=== PATIENT | female | born 1980 | race Hispanic/Latino ===

== ENCOUNTER → 2018-09-22 | Day surgery (SDC) | payer MEDICARE ==
[~2018-09-22] MED LIST: ASPIR 8181 MG PO; BUPIVACAINE HCL 0.5% INJ 30 ML VIAL INJ ONE; CALCIUM PO; CARDIZEM CD180 MG PO; CEFAZOLIN SOD 1 GM/NS 50ML 100 ML IV ONE; DEXAMETHASONE SOD PHOS INJ 4 MG/ML VIAL ONE; DILTIAZEM HCL60 MG PO; FENTANYL CITRATE/PF 100MCG/2 ML INJ ONE; HYDROXYCHLOROQ200 MG PO; KETOROLAC TROMETHAMINE 30 MG/ML VIAL ONE; LIDOCAINE HCL 2% LOCAL INJ 5 ML SDV VIAL INJ ONE; MIDAZOLAM HCL 2 MG/2 ML VIAL ONE; MULTIVITAMINS1 EAC7 PO; MYCOPHENOLATE250 MG PO; NEOSTIGMINE 1 MG/ML 10ML VIAL ONE; ONDANSETRON HCL INJ 2MG/ML 2ML 2 MG/ML VIAL ONE; PREDNISONE5 MG PO; PROPOFOL IV EMULSION 10 MG/ML 20 ML VIAL ONE; SEVOFLURANE INHAL SOLN 250 ML PEN BTL ONE; Z DILTIAZEM PO; Z.0.PREDNISONE20 MG PO; Z.0.RAMIPRIL10 MG PO; [UNRECOGNIZED DRUG - CODE] PO; [UNRECOGNIZED DRUG - OTHER]; [UNRECOGNIZED DRUG - OTHER]
--- OUTSIDE RECORDS SUMMARY | 2018-09-22 05:37 | XMS REPORT ---
Author Author Kleber Brown eClinicalWorks Address Unknown Phone Unavailable Care Team Providers Care Pediatric Radiologist Name Role Phone Kleber Brown CP Unavailable Allergies, Adverse Reactions, Alerts Substance Reaction Event Type N.K.D.A. Info Not Available Non Drug Allergy Encounters Encounter Location Date RX Duplicate Kleber Brown MD May 04, 2014 2mth f/u Kleber Brown MD May 16, 2014 REFILLS Kleber Brown MD Aug 22, 2014 prednisone question Kleber Brown MD Aug 25, 2014 4 wk f/u Kleber Brown MD November 01, 2013 6 wk fu Kleber Brown MD December 15, 2013 REFILLS Kleber Brown MD May 02, 2014 3 M FU Kleber Brown MD December 08, 2014 Costochondritis Kleber Brown MD September 27, 2014 3 M FU Kleber Brown MD Sep 12, 2014 3 M AMY Brown MD Jun 07, 2015 3 M AMY Brown MD Sep 07, 2015 3 M AMY Brown MD Mar 10, 2015 add on Kleber Brown MD May 24, 2015 Unknown Kleber Brown MD Mar 17, 2015 Research Kleber Brown MD Mar 20, 2015 Problems Problem Type Condition ICD-9 Code Onset Dates Condition Status Problem Other care home (current) drug therapy Z79.899 Active Problem Headache R51 Active Problem Lupus M32.9 Active Assessment 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.899 Active Problem Lupus 710.0 Active Assessment Lupus M32.9 Active Medications Medication Code System Code Instructions Start Date End Date Status Dosage Diltiazem HCl [facility] [address]-93 120 MG Orally Once a day Active 1 tablet Aspir-81 [facility] [address]-39 81 MG Orally Once a day Active 1 tablet Hydroxychloroquine Sulfate [facility] 90705731322 200 Active TAKE 1 TABLET BY MOUTH EVERY DAY WITH FOOD OR MILK Calcium [facility] 71451-16817 600 MG Orally daily Active 1 tablet with meals Biotin [facility] 99441-67262 5000 MCG Orally twice a day Active 1 capsule Cipro [facility] [address]-04 500 MG Orally Twice a day Active 1 tablet Mycophenolate Mofetil [facility] [address]-96 500mg Orally bid Active 1 tablets PredniSONE [facility] 20593129849 5 MG Active TAKE 1 TABLET BY MOUTH EVERY DAY vitamin D Unknown 0 5000 po once a day Active 1 capsule Ramipril [facility] [address]-42 10 MG Orally Once a day Active 2 capsules Social History Social History Element Qualifiers Date Reported Tobacco Use: . Are you a:: never smoker Sep 07, 2015 Marital Status: . Sep 07, 2015 Caffeine: no. Sep 07, 2015 Exercise: yes. cardio and light weights Sep 07, 2015 Alcohol: no. 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 [place](-> OR=60 mL/min/1.73m2) 75 ALKALINE PHOSPHATASE(-33-115 U/L) 46 eGFR (-> OR=60 mL/min/1.73m2) 87 BILIRUBIN, TOTAL(-0.2-1.2 mg/dL) 0.3 BUN/CREATININE RATIO(-6-22 (calc)) NOT APPLICABLE ALBUMIN/GLOBULIN RATIO(-1.0-2.5 (calc)) 1.4 SODIUM(-135-146 mmol/L) 138 GLOBULIN(-1.9-3.7 g/dL (calc)) 2.9 POTASSIUM(-3.5-5.3 mmol/L) 3.9 GLUCOSE(-65-99 mg/dL) 66 CHLORIDE(-98-110 mmol/L) 104 ALBUMIN(-3.6-5.1 g/dL) 4.1 UREA NITROGEN (BUN)(-7-25 mg/dL) 13 PROTEIN, TOTAL(-6.1-8.1 g/dL) 7.0 SED RATE BY MODIFIED WESTERGREN SED RATE BY MODIFIED WESTERGREN(-< OR=20 mm/h) 9 C-REACTIVE PROTEIN C-REACTIVE PROTEIN(-<0.80 mg/dL) <0.10 CBC (INCLUDES DIFF/PLT) MCHC(-32.0-36.0 g/dL) 32.7 MCH(-27.0-33.0 pg) 32.1 PLATELET COUNT(-140-400 Thousand/uL) 260 RDW(-11.0-15.0 %) 12.8 BASOPHILS(- %) 0.4 ABSOLUTE NEUTROPHILS(-9726-3458 cells/uL) 1679 ABSOLUTE LYMPHOCYTES(-850-3900 cells/uL) 2057 MPV(-7.5-11.5 fL) 8.8 ABSOLUTE BASOPHILS(-0-200 cells/uL) 18 HEMATOCRIT(-35.0-45.0 %) 43.0 NEUTROPHILS(- %) 37.3 MCV(-80.0-100.0 fL) 98.3 RED BLOOD CELL COUNT(-3.80-5.10 Million/uL) 4.37 ABSOLUTE MONOCYTES(-200-950 cells/uL) 689 ABSOLUTE EOSINOPHILS(-15-500 cells/uL) 59 HEMOGLOBIN(-11.7-15.5 g/dL) 14.1 EOSINOPHILS(- %) 1.3 WHITE BLOOD CELL COUNT(-3.8-10.8 Thousand/uL) 4.5 LYMPHOCYTES(- %) 45.7 MONOCYTES(- %) 15.3 Summary Purpose eClinicalWorks Submission
--- OUTSIDE RECORDS SUMMARY | 2018-09-22 05:37 | XMS REPORT ---
Author Author Ryan Menendez [facility] eClinicalWorks Address Unknown Phone Unavailable Care Team Providers Care Sap Hana Developer Name Role Phone Ryan Menendez Unavailable Allergies, Adverse Reactions, Alerts Substance Reaction Event Type N.K.D.A. Info Not Available Non Drug Allergy Problems Problem Type Condition Code Onset Dates Condition Status Assessment Need for prophylactic vaccination and inoculation against influenza Z23 Active Problem Lupus M32.9 Active Problem Other residential (current) drug therapy Z79.899 Active Problem Inflammatory arthritis M19.90 Active Assessment Other residential (current) drug therapy Z79.899 Active Assessment Inflammatory arthritis M19.90 Active Problem Headache R51 Active Assessment Lupus M32.9 Active Medications Medication Code System Code Instructions Start Date End Date Status Dosage Ramipril [facility] [address]-19 10 MG Orally Once a day Active 2 capsules Mycophenolate Mofetil [facility] 08654133184 500 Active TAKE 1 TABLET BY MOUTH TWICE DAILY Diltiazem HCl [facility] [address]-86 180 MG Orally Once a day Active 1 tablet Kerydin [facility] [address]-57 5 % Externally Once a day Active 1 application to affected area Calcium + D [facility] [address]-23 600-200 MG-UNIT Orally Once a day Active 1 tablet with food [place] 3 [facility] 18521-64045 1000 MG Orally Once a day Active 1 capsule Aspir-81 [facility] [address]-56 81 MG Orally Once a day Active 1 tablet PredniSONE [facility] 45381708770 2.5mg every other day Active 1 tablet Terbinafine HCl [facility] [address]-15 250 MG Orally Once a day Active 1 tablet Biotin [facility] 73704-59213 5000 MCG Orally twice a day Active 1 capsule Plaquenil [facility] 20141770247 200 MG Active TAKE 1 TABLET BY MOUTH TWICE A DAY Vital Signs Date/Time: May 02, 2017 BMI 24.87 Index Weight 136 lbs Height 62 in Temperature 98.1 F Cardiac Monitoring Heart Rate 80 /min Blood Pressure Diastolic 62 mm Hg Blood Pressure Systolic 104 mm Hg Results No Known Results Immunizations Vaccine Administration Date Flu Vaccine May 02, 2017 Summary Purpose eClinicalWorks Submission
--- OUTSIDE RECORDS SUMMARY | 2018-09-22 05:37 | XMS REPORT ---
Author Author Ryan Menendez [facility] eClinicalWorks Address Unknown Phone Unavailable Care Team Providers Care Weigher Operator Name Role Phone GemmaRyan reese Unavailable Allergies, Adverse Reactions, Alerts Substance Reaction [...] Brown MD May 02, 2014 3 M AMY Brown MD December 08, 2014 Costochondritis Kleber Brown MD September 27, 2014 3 M AMY Brown MD Sep 12, 2014 3 M AMY Brown MD Jun 07, 2015 3 M AMY Brown MD Mar 10, 2015 add on Kleber Brown MD May 24, 2015 Unknown Kleber Brown MD Mar 17, 2015 Research Kleber Brown MD Mar 20, 2015 Problems Problem Type Condition ICD-9 Code Onset Dates Condition Status Assessment Encounter for immunization Z23 Active Problem Other long-term (current) drug therapy Z79.899 Active Problem Headache R51 Active Problem Lupus M32.9 Active Assessment 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.899 Active Assessment Headache R51 Active Problem Lupus 710.0 Active Assessment Lupus M32.9 Active Medications Medication Code System Code Instructions Start Date End Date Status Dosage Calcium [facility] 95051-61356 600 MG Orally daily Active 1 tablet with meals Cipro [facility] [address]-14 500 MG Orally Twice a day Active 1 tablet vitamin D Unknown 0 5000 po once a day Active 1 capsule PredniSONE [facility] [address]-63 5 MG Orally qd Active 1 tablet Ramipril [facility] [address]-30 10 MG Orally Once a day Active 2 capsules Aspir-81 [facility] [address]-16 81 MG Orally Once a day Active 1 tablet Mycophenolate Mofetil [facility] [address]-86 500mg Orally bid Active 1 tablets Plaquenil [facility] [address]-33 200 MG Orally Once a day Active 1 tablet with food or milk PredniSONE [facility] 53127224738 5 MG Active TAKE 1 TABLET BY MOUTH EVERY DAY Diltiazem HCl [facility] [address]-19 120 MG Orally Once a day Active 1 tablet Biotin [facility] 85503-05644 5000 MCG Orally twice a day Active 1 capsule Social History Social History Element Qualifiers Date Reported Tobacco Use: . Are you a:: never smoker Jun 07, 2015 Marital Status: . Jun 07, 2015 Caffeine: no. Jun 07, 2015 Exercise: yes. cardio and light weights Jun 07, 2015 Alcohol: no. 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 [place](-> OR=60 mL/min/1.73m2) 71 ALBUMIN(-3.6-5.1 g/dL) 4.3 SODIUM(-135-146 mmol/L) 137 PROTEIN, TOTAL(-6.1-8.1 g/dL) 7.7 BUN/CREATININE RATIO(-6-22 (calc)) NOT APPLICABLE CALCIUM(-8.6-10.2 mg/dL) 9.8 AST(-10-30 U/L) 22 GLUCOSE(-65-99 mg/dL) 74 ALKALINE PHOSPHATASE(-33-115 U/L) 57 BILIRUBIN, TOTAL(-0.2-1.2 mg/dL) 0.4 CREATININE(-0.50-1.10 mg/dL) 1.04 ALBUMIN/GLOBULIN RATIO(-1.0-2.5 (calc)) 1.3 UREA NITROGEN (BUN)(-7-25 mg/dL) 18 CARBON DIOXIDE(-19-30 mmol/L) 27 ALT(-6-29 U/L) 17 POTASSIUM(-3.5-5.3 mmol/L) 4.2 CHLORIDE(-98-110 mmol/L) 102 PROTEIN, TOTAL W/CREAT, RANDOM URINE CREATININE, RANDOM URINE(-20-320 mg/dL) 127 PROTEIN/CREATININE RATIO(-21-161 mg/g creat) 55 PROTEIN, TOTAL, RANDOM UR(-5-24 mg/dL) 7 C3, C4, COMPLEMENT COMPLEMENT COMPONENT C4C(-ADULTS: 16-47 mg/dL) 13 COMPLEMENT, TOTAL (CH50)(-31-60 U/mL) 52 COMPLEMENT COMPONENT C3C(- mg/dL) 106 C-REACTIVE PROTEIN C-REACTIVE PROTEIN(-<0.80 mg/dL) <0.10 DS DNA-Crithidia Ifa w/ Reflex DNA AB (DS) CRITHIDIA,IFA(-NEGATIVE ) POSITIVE SED RATE BY MODIFIED WESTERGREN SED RATE BY MODIFIED WESTERGREN(-< OR=20 mm/h) 5 URINALYSIS, COMPLETE OCCULT BLOOD(-NEGATIVE ) NEGATIVE KETONES(-NEGATIVE ) NEGATIVE BILIRUBIN(-NEGATIVE ) NEGATIVE GLUCOSE(-NEGATIVE ) NEGATIVE PH(-5.0-8.0 ) 5.5 SPECIFIC GRAVITY(-1.001-1.035 ) 1.010 APPEARANCE(-CLEAR ) CLEAR COLOR(-YELLOW ) YELLOW SQUAMOUS EPITHELIAL CELLS(-< OR=5 /HPF) NONE SEEN BACTERIA(-NONE SEEN /HPF) NONE SEEN HYALINE CAST(-NONE SEEN /LPF) NONE SEEN NITRITE(-NEGATIVE ) NEGATIVE LEUKOCYTE ESTERASE(-NEGATIVE ) NEGATIVE WBC(-< OR=5 /HPF) NONE SEEN RBC(-< OR=2 /HPF) NONE SEEN PROTEIN(-NEGATIVE ) NEGATIVE DNA AB (DS) CRITHIDIA TITER DNA AB (DS) CRITHIDIA TITER(-<1:10 titer) 1:160 CBC (INCLUDES DIFF/PLT) HEMOGLOBIN(-11.7-15.5 g/dL) 14.9 RED BLOOD CELL COUNT(-3.80-5.10 Million/uL) 4.61 MCV(-80.0-100.0 fL) 97.5 HEMATOCRIT(-35.0-45.0 %) 44.9 MCHC(-32.0-36.0 g/dL) 33.1 MCH(-27.0-33.0 pg) 32.3 PLATELET COUNT(-140-400 Thousand/uL) 285 RDW(-11.0-15.0 %) 13.0 MPV(-7.5-11.5 fL) 8.4 ABSOLUTE LYMPHOCYTES(-850-3900 cells/uL) 1700 ABSOLUTE NEUTROPHILS(-4502-1741 cells/uL) 2662 ABSOLUTE EOSINOPHILS(-15-500 cells/uL) 109 ABSOLUTE MONOCYTES(-200-950 cells/uL) 702 NEUTROPHILS(- %) 51.2 WHITE BLOOD CELL COUNT(-3.8-10.8 Thousand/uL) 5.2 BASOPHILS(- %) 0.5 ABSOLUTE BASOPHILS(-0-200 cells/uL) 26 EOSINOPHILS(- %) 2.1 LYMPHOCYTES(- %) 32.7 MONOCYTES(- %) 13.5 Immunizations Vaccine Administration Date Flu Vaccine Jun 07, 2015 Summary Purpose eClinicalWorks Submission
--- OUTSIDE RECORDS SUMMARY | 2018-09-22 05:37 | XMS REPORT ---
Author Author Ryan Menendez [facility] eClinicalWorks Address Unknown Phone Unavailable Care Team Providers Care Water Purifier Name Role Phone Ryan Menendez CP Unavailable Allergies, Adverse Reactions, Alerts Substance Reaction Event Type N.K.D.A. Info Not Available Non Drug Allergy Problems Problem Type Condition Code Onset Dates Condition Status Assessment Inflammatory arthritis M19.90 Active Problem Other intermediate manager (current) drug therapy Z79.899 Active Problem Headache R51 Active Problem Inflammatory arthritis M19.90 Active Assessment Lupus M32.9 Active Assessment Other intermediate manager (current) drug therapy Z79.899 Active Problem Lupus M32.9 Active Medications Medication Code System Code Instructions Start Date End Date Status Dosage Calcium + D [facility] 28160420851 600-200 MG-UNIT Orally Once a day Active 1 tablet with food Ramipril ND 53496927263 10 MG Orally Once a day Active 2 capsules Biotin ND 35825163095 5000 MCG Orally twice a day Active 1 capsule Diltiazem HCl [facility] 97037045772 180 MG Orally Once a day Active 1 tablet Mycophenolate Mofetil ND 14023372206 500 Active TAKE 1 TABLET BY MOUTH TWICE DAILY Plaquenil [facility] 90226778377 200 MG Active TAKE 1 TABLET BY MOUTH TWICE A DAY PredniSONE [facility] [address]-16 5 MG Orally every other day Active 1 tablet [place] 3 [facility] 02027922512 1000 MG Orally Once a day Active 1 capsule Aspir-81 [facility] 58753868659 81 MG Orally Once a day Active 1 tablet PredniSONE [facility] 47169321867 2.5 MG Orally Once a day Jul 22, 2018 Active 1 tablet Vital Signs Date/Time: Jun 23, 2018 Cardiac Monitoring Heart Rate 64 /min Blood Pressure Diastolic 70 mm Hg Blood Pressure Systolic 108 mm Hg Temperature 98.5 F Results No Known Results Summary Purpose eClinicalWorks Submission
--- OUTSIDE RECORDS SUMMARY | 2018-09-22 05:37 | XMS REPORT ---
Author Author Roseanne Allen [facility] eClinicalWorks Address Unknown Phone Unavailable Care Team Providers Care Cook Helper Vegetable Name Role Phone Roseanne Allen Unavailable Allergies, Adverse Reactions, Alerts Substance Reaction Event Type N.K.D.A. Info Not Available Non Drug Allergy Encounters Encounter Location Date RX Duplicate Kleber Brown MD May 04, 2014 2mth f/u Kleber Brown MD May 16, 2014 4 wk f/u Kleber Brown MD November 01, 2013 6 wk fu Kleber Brown MD December 15, 2013 REFILLS Kleber Brown MD May 02, 2014 Problems Problem Type Condition ICD-9 Code Onset Dates Condition Status Assessment Lupus 710.0 Active Social History Social History Element Qualifiers Date Reported Tobacco Use: . Are you a:: never smoker May 16, 2014 Caffeine: no. May 16, 2014 Exercise: yes. cardio and light weights May 16, 2014 Alcohol: no. May 16, 2014 Vital Signs Date/Time: May 16, 2014 Weight 132 lbs Height 61 in Temperature 98.5 F Cardiac Monitoring Heart Rate 76 /min Blood Pressure Diastolic 90 mm Hg Blood Pressure Systolic 160 mm Hg Results NURYS IFA SCREEN W/REFL TO TITER AND PATTERN, IFA NURYS TITER(- titer) 1:160 NURYS SCREEN, IFA(-NEGATIVE ) POSITIVE NURYS PATTERN(- ) HOMOGENEOUS DS DNA-Crithidia Ifa w/ Reflex DNA AB (DS) CRITHIDIA,IFA(-NEGATIVE ) POSITIVE DNA AB (DS) CRITHIDIA TITER(-<1:10 ) 1:160 C-REACTIVE PROTEIN C-REACTIVE PROTEIN(-<0.80 mg/dL) <0.10 COMPREHENSIVE METABOLIC PANEL W/EGFR SODIUM(-135-146 mmol/L) 138 BUN/CREATININE RATIO(-6-22 (calc)) NOT APPLICABLE CHLORIDE(-98-110 mmol/L) 105 POTASSIUM(-3.5-5.3 mmol/L) 4.2 CALCIUM(-8.6-10.2 mg/dL) 9.0 PROTEIN, TOTAL(-6.1-8.1 g/dL) 6.7 CARBON DIOXIDE(-19-30 mmol/L) 24 ALBUMIN/GLOBULIN RATIO(-1.0-2.5 (calc)) 1.6 eGFR NON-AFR. [place](-> OR=60 mL/min/1.73m2) 74 BILIRUBIN, TOTAL(-0.2-1.2 mg/dL) 0.3 eGFR (-> OR=60 mL/min/1.73m2) 86 UREA NITROGEN (BUN)(-7-25 mg/dL) 16 ALBUMIN(-3.6-5.1 g/dL) 4.1 GLOBULIN(-1.9-3.7 g/dL (calc)) 2.6 CREATININE(-0.50-1.10 mg/dL) 1.01 ALT(-6-29 U/L) 17 GLUCOSE(-65-99 mg/dL) 86 ALKALINE PHOSPHATASE(-33-115 U/L) 51 AST(-10-30 U/L) 17 Immunizations Vaccine Administration Date Flu Vaccine May 16, 2014 Summary Purpose eClinicalWorks Submission
--- OUTSIDE RECORDS SUMMARY | 2018-09-22 05:37 | XMS REPORT ---
Author Author Brody Cage Organization eClinicalWorks Address Unknown Phone Unavailable Care Team Providers Care Spiritual Advisor Name Role Phone Brody Cage CP Unavailable Allergies, Adverse Reactions, Alerts Substance Reaction Event Type N.K.D.A. Info Not Available Non Drug Allergy Encounters Encounter Location Date 4 wk f/u Kleber Brown MD November 01, 2013 6 wk fu Kleber Brown MD December 15, 2013 Problems Problem Type Condition ICD-9 Code Onset Dates Condition Status Assessment Lupus 710.0 Active Problem Lupus 710.0 Active Medications Medication Code System Code Instructions Start Date End Date Status Dosage Mycophenolate [facility]il [facility] [address]-95 500 MG Orally Twice a day Active 2 tablets Ramipril [facility] [address]-57 10 MG Orally Once a day Active 2 capsules Prednison Unknown 0 10 MG Once a day December 15, 2013 Inactive 1 tablet Prednisone Unknown 0 1mg Orally Once a day December 15, 2013 Mar 15, 2014 Active 4 tablets as directed Plaquenil [facility] [address]-83 200 MG Orally Once a day October 05, 2013 February 02, 2014 Active 2 tablets with food or milk Diltiazem HCl [facility] [address]-48 120 MG Orally Once a day Active 1 tablet PredniSONE [facility] [address]-40 5 MG Orally Once a day December 15, 2013 Apr 14, 2014 Active 1 tablet Social History Social History Element Qualifiers Date Reported Tobacco Use: . Are you a:: never smoker December 15, 2013 Caffeine: no. December 15, 2013 Exercise: yes. cardio and light weights December 15, 2013 Alcohol: no. December 15, 2013 Vital Signs Date/Time: December 15, 2013 Weight 134 lbs Height 61 in Temperature 96.9 F Cardiac Monitoring Heart Rate 80 /min Blood Pressure Diastolic 80 mm Hg Blood Pressure Systolic 120 mm Hg Summary Purpose eClinicalWorks Submission
--- OUTSIDE RECORDS SUMMARY | 2018-09-22 05:37 | XMS REPORT ---
Author Author Kleber Brown [facility] eClinicalWorks Address Unknown Phone Unavailable Care Team Providers Care Golf Club Manager Name Role Phone Kleber Brown Unavailable Encounters Encounter Location Date RX Duplicate Kleber Brown MD May 04, 2014 4 wk f/u Kleber Brown MD November 01, 2013 6 wk fu Kleber Brown MD December 15, 2013 REFILLS Kleber Brown MD May 02, 2014 Problems Problem Type Condition ICD-9 Code Onset Dates Condition Status Problem Lupus 710.0 Active Social History Social History Element Qualifiers Date Reported Tobacco Use: . Are you a:: never smoker December 15, 2013 Caffeine: no. December 15, 2013 Exercise: yes. cardio and light weights December 15, 2013 Alcohol: no. December 15, 2013 Summary Purpose eClinicalWorks Submission
--- OUTSIDE RECORDS SUMMARY | 2018-09-22 05:37 | XMS REPORT ---
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
--- OUTSIDE RECORDS SUMMARY | 2018-09-22 05:37 | XMS REPORT ---
Author Author Ryan Menendez [facility] eClinicalWorks Address Unknown Phone Unavailable Care Team Providers Care International Trade Compliance Manager Name Role Phone Ryan Menendez Unavailable Encounters Encounter Location Date RX Duplicate [...] 12, 2014 3 M AMY Brown MD December 06, 2015 plaquenil rx Kleber Brown MD December 28, 2015 3 M AMY Brown MD Jun 07, 2015 3 M AMY Brown MD Sep 07, 2015 3 M AMY Brown MD Mar 10, 2015 add on Kleber Brown MD May 24, 2015 Unknown Kleber Brown MD Mar 17, 2015 Research Kleber Brown MD Mar 20, 2015 Problems Problem Type Condition ICD-9 Code Onset Dates Condition Status Problem Other termite control servicer (current) drug therapy Z79.899 Active Problem Headache R51 Active Problem Lupus M32.9 Active Problem Lupus 710.0 Active Medications Medication Code System Code Instructions Start Date End Date Status Dosage Hydro[facility]ychloroqu[facility] [address]-00 200 MG Orally Twice a day December 28, 2015 Active 1 tablet Social History Social History Element Qualifiers Date Reported Tobacco Use: . Are you a:: never smoker December 06, 2015 Marital Status: . December 06, 2015 Caffeine: no. December 06, 2015 Exercise: yes. cardio and light weights December 06, 2015 Alcohol: no. 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
--- OUTSIDE RECORDS SUMMARY | 2018-09-22 05:37 | XMS REPORT ---
Author Author Kleber Brown eClinicalWorks Address Unknown Phone Unavailable Care Team Providers Care Film Composer Name Role Phone Kleber Brown CP Unavailable Encounters Encounter Location Date 4 wk f/u Kleber Brown MD November 01, 2013 6 wk fu Kleber Brown MD December 15, 2013 REFILLS Kleber Brown MD May 02, 2014 Problems Problem Type Condition ICD-9 Code Onset Dates Condition Status Problem Lupus 710.0 Active Medications Medication Code System Code Instructions Start Date End Date Status Dosage PrednisoLONE [facility] [address]-05 5 MG Orally Once a day May 02, 2014 Jun 01, 2014 Active 1 tablet Social History Social History Element Qualifiers Date Reported Tobacco Use: . Are you a:: never smoker December 15, 2013 Caffeine: no. December 15, 2013 Exercise: yes. cardio and light weights December 15, 2013 Alcohol: no. December 15, 2013 Summary Purpose eClinicalWorks Submission
--- OUTSIDE RECORDS SUMMARY | 2018-09-22 05:37 | XMS REPORT ---
Author Author Ryan Menendez [facility] eClinicalWorks Address Unknown Phone Unavailable Care Team Providers Care Leather Etcher Name Role Phone Ryan Menendez CP Unavailable Allergies, Adverse Reactions, Alerts Substance Reaction Event Type N.K.D.A. Info Not Available Non Drug Allergy Problems Problem Type Condition Code Onset Dates Condition Status Assessment Headache R51 Active Problem Other snf (current) drug therapy Z79.899 Active Problem Headache R51 Active Problem Inflammatory arthritis M19.90 Active Assessment Other snf (current) drug therapy Z79.899 Active Assessment Inflammatory arthritis M19.90 Active Problem Lupus M32.9 Active Assessment Lupus M32.9 Active Medications Medication Code System Code Instructions Start Date End Date Status Dosage Aspir-[address] [facility] 11754003830 81 MG Orally Once a day Active 1 tablet [place] 3 ND 96475494580 1000 MG Orally Once a day Active 1 capsule Plaquenil ND 31515874150 200 MG Active TAKE 1 TABLET BY MOUTH TWICE A DAY Diltiazem HCl ND 36312776593 180 MG Orally Once a day Active 1 tablet Calcium + D ND 12442087108 600-200 MG-UNIT Orally Once a day Active 1 tablet with food Ramipril ND 87045414707 10 MG Orally Once a day Active 2 capsules Mycophenolate Mofetil ND 57948541885 500 Active TAKE 1 TABLET BY MOUTH TWICE DAILY PredniSONE [facility] 56515689405 2.5 MG Orally Once a day Jul 22, 2018 Active 1 tablet Biotin ND 39273406229 5000 MCG Orally twice a day Active 1 capsule Vital Signs Date/Time: Mar 24, 2018 BMI 25.60 Index Weight 140 lbs Height 62 in Temperature 98.5 F Cardiac Monitoring Heart Rate 80 /min Blood Pressure Diastolic 70 mm Hg Blood Pressure Systolic 108 mm Hg Results No Known Results Summary Purpose eClinicalWorks Submission
--- OUTSIDE RECORDS SUMMARY | 2018-09-22 05:37 | XMS REPORT ---
Author Author Ryan Menendez [facility] eClinicalWorks Address Unknown Phone Unavailable Care Team Providers Care Behavioral Science Chair Name Role Phone Ryan Menendez Unavailable Allergies No Known Allergies Problems Problem Type Condition Code Onset Dates Condition Status Problem Lupus M32.9 Active Problem Other local company intermodal truck driver (current) drug therapy Z79.899 Active Problem Inflammatory arthritis M19.90 Active Problem Headache R51 Active Medications No Known Medications Results No Known Results Summary Purpose eClinicalWorks Submission
--- OUTSIDE RECORDS SUMMARY | 2018-09-22 05:37 | XMS REPORT ---
Author Author Ryan Menendez [facility] eClinicalWorks Address Unknown Phone Unavailable Care Team Providers Care Manufacturing Specialist Name Role Phone Ryan Menendez Unavailable Encounters [...] M AMY Brown MD December 06, 2015 3 M AMY Brown MD Jun 07, 2015 3 M AMY Brown MD Sep 07, 2015 3 M AMY Brown MD Mar 10, 2015 add on Kleber Brown MD May 24, 2015 Unknown Kleber Brown MD Mar 17, 2015 Research Kleber Brown MD Mar 20, 2015 Problems Problem Type Condition ICD-9 Code Onset Dates Condition Status Assessment Vitamin D deficiency E55.9 Active Problem Other [facility] (current[facility] drug therapy Z79.899 Active Problem Headache R51 Active Problem Lupus M32.9 Active Assessment Headache R51 Active Assessment Other [facility] (current[facility] drug therapy Z79.899 Active Problem Lupus 710.0 Active Assessment Lupus M32.9 Active Medications Medication Code System Code Instructions Start Date End Date Status Dosage Ramipril [facility] [address]-63 10 MG Orally Once a day Active 2 capsules Biotin [facility] 91405-19943 5000 MCG Orally twice a day Active 1 capsule PredniSONE [facility] 88547794137 5 MG every other day Active take 1 tablet Calcium + D [facility] [address]-52 600-200 MG-UNIT Orally Once a day Active 1 tablet with food Mycophenolate Mofetil [facility] [address]-93 500mg Orally once a day Active 1 tablets Hydroxychloroquine Sulfate [facility] 27446407292 200 Active TAKE 2 TABLET BY MOUTH EVERY DAY WITH FOOD OR MILK Aspir-81 [facility] [address]-95 81 MG Orally Once a day Active 1 tablet Diltiazem HCl [facility] [address]-07 120 MG Orally Once a day Active 1 tablet Social History Social History Element Qualifiers Date Reported Tobacco Use: . Are you a:: never smoker December 06, 2015 Marital Status: . December 06, 2015 Caffeine: no. December 06, 2015 Exercise: yes. cardio and light weights December 06, 2015 Alcohol: no. 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
--- OUTSIDE RECORDS SUMMARY | 2018-09-22 05:37 | XMS REPORT ---
Author Author yRan Menendez Organization eClinicalWorks Address Unknown Phone Unavailable Care Team Providers Care Lead Level Designer Name Role Phone Ryan Menendez CP Unavailable Allergies, Adverse Reactions, Alerts Substance Reaction Event Type N.K.D.A. Info Not Available Non Drug Allergy Problems Problem Type Condition Code Onset Dates Condition Status Problem Lupus M32.9 Active Problem Other terminologist (current) drug therapy Z79.899 Active Problem Inflammatory arthritis M19.90 Active Assessment Other terminologist (current) drug therapy Z79.899 Active Problem Headache R51 Active Assessment Lupus M32.9 Active Medications Medication Code System Code Instructions Start Date End Date Status Dosage Mycophenolate Mofetil [facility] 95688465679 500 Active TAKE 1 TABLET BY MOUTH TWICE DAILY Hydroxychloroquine Sulfate [facility] [address]-90 200 MG Orally Twice a day Active 1 tablet Plaquenil [facility] 35065970936 200 MG Active TAKE 1 TABLET BY MOUTH TWICE A DAY Calcium + D [facility] [address]-60 600-200 MG-UNIT Orally Once a day Active 1 tablet with food PredniSONE [facility] 88972985421 2.5mg every other day Active 1 tablet Diltiazem HCl [facility] [address]-37 180 MG Orally Once a day Active 1 tablet Ramipril [facility] [address]-72 10 MG Orally Once a day Active 2 capsules Biotin [facility] 41261-43957 5000 MCG Orally twice a day Active 1 capsule [place] 3 [facility] [address]44[address]-88452 1000 MG Orally Once a day Active 1 capsule Aspir-81 [facility] [address]-97 81 MG Orally Once a day Active 1 tablet Vital Signs Date/Time: January 30, 2017 BMI 24.10 Index Weight 131.8 lbs Height 62 in Temperature 96.3 F Cardiac Monitoring Heart Rate 68 /min Blood Pressure Diastolic 70 mm Hg Blood Pressure Systolic 110 mm Hg Results No Known Results Summary Purpose eClinicalWorks Submission
--- OUTSIDE RECORDS SUMMARY | 2018-09-22 05:37 | XMS REPORT ---
Author Author Ryan Menendez Organization eClinicalWorks Address Unknown Phone Unavailable Care Team Providers Care Tapper Shank Name Role Phone Ryan Menendez CP Unavailable Allergies, Adverse Reactions, Alerts Substance Reaction Event Type N.K.D.A. Info Not Available Non Drug Allergy Problems Problem Type Condition Code Onset Dates Condition Status Problem Other care home (current) drug therapy Z79.899 Active Problem Headache R51 Active Problem Inflammatory arthritis M19.90 Active Assessment Other care home (current) drug therapy Z79.899 Active Problem Lupus M32.9 Active Assessment Lupus M32.9 Active Medications Medication Code System Code Instructions Start Date End Date Status Dosage Aspir-81 [facility] 59702749651 81 MG Orally Once a day Active 1 tablet Ramipril ND 87302718271 10 MG Orally Once a day Active 2 capsules PredniSONE ND 91452049460 2.5mg every other day Active 1 tablet Mycophenolate Mofetil ND 87637910069 500 qd Active take 1 tablet Diltiazem HCl ND 02751437237 180 MG Orally Once a day Active 1 tablet Biotin ND 36124082065 5000 MCG Orally twice a day Active 1 capsule Calcium + D [facility] 96170627686 600-200 MG-UNIT Orally Once a day Active 1 tablet with food Plaquenil ND 12581357405 200 MG Active TAKE 1 TABLET BY MOUTH TWICE A DAY [place] 3 [place] 51889327258 1000 MG Orally Once a day Active 1 capsule Vital Signs Date/Time: November 20, 2017 BMI 25.24 Index Weight 138 lbs Height 62 in Temperature 97.4 F Cardiac Monitoring Heart Rate 74 /min Blood Pressure Diastolic 74 mm Hg Blood Pressure Systolic 118 mm Hg Results No Known Results Summary Purpose eClinicalWorks Submission
--- OUTSIDE RECORDS SUMMARY | 2018-09-22 05:37 | XMS REPORT ---
Author Author Brody Cage Organization eClinicalWorks Address Unknown Phone Unavailable Care Team Providers Care Diabetes Clinical Manager Name Role Phone Brody Cage Unavailable Encounters Encounter Location Date 4 wk f/u Kleber Brown MD November 01, 2013 Problems Problem Type Condition ICD-9 Code Onset Dates Condition Status Assessment Lupus 710.0 Active Assessment Unspecified vitamin D deficiency 268.9 Active Problem Lupus 710.0 Active Medications Medication Code System Code Instructions Start Date End Date Status Dosage Mycophenolate Mofetil [facility] [address]-34 500 MG Orally Twice a day Active 2 tablets Plaquenil [facility] [address]-34 200 MG Orally Once a day October 05, 2013 February 02, 2014 Active 1 tablet with food or milk Prednison Unknown 0 10 MG Once a day Active 1 tablet Ramipril [facility] [address]-78 10 MG Orally Once a day Active 2 capsules Levaquin [facility] [address]-80 500 MG Orally Once a day November 01, 2013 November 08, 2013 Active 1 tablet Heliocare [facility] [address]-67 240 MG Orally Once a day Active 1 capsule Diltiazem HCl [facility] [address]-79 120 MG Orally Once a day Active 1 tablet Social History Social History Element Qualifiers Date Reported Tobacco Use: . Are you a:: never smoker November 01, 2013 Caffeine: no. November 01, 2013 Exercise: yes. cardio and light weights November 01, 2013 Alcohol: no. November 01, 2013 Family history Qualifier Description Comment Date Reported Mother alive Comment not available November 01, 2013 Father Comment not available November 01, 2013 Vital Signs Date/Time: November 01, 2013 Weight 132 lbs Height 62 inches Temperature 97.3 F Cardiac Monitoring Heart Rate 68 Beats per Minute Blood Pressure Diastolic 80 mm Hg Blood Pressure Systolic 130 mm Hg Summary Purpose eClinicalWorks Submission
--- OUTSIDE RECORDS SUMMARY | 2018-09-22 05:37 | XMS REPORT ---
Author Author Kleber Brown Organization eClinicalWorks Address Unknown Phone Unavailable Care Team Providers Care Pin Attacher Name Role Phone Kleber Brown CP Unavailable Allergies No Known Allergies Problems Problem Type Condition Code Onset Dates Condition Status Problem Other exterminator (current) drug therapy Z79.899 Active Problem Headache R51 Active Problem Inflammatory arthritis M19.90 Active Problem Lupus M32.9 Active Medications No Known Medications Results No Known Results Summary Purpose eClinicalWorks Submission
--- OUTSIDE RECORDS SUMMARY | 2018-09-22 05:37 | XMS REPORT ---
Author Author Ryan Menendez Organization eClinicalWorks Address Unknown Phone Unavailable Care Team Providers Care Barrel Stave Inspector Name Role Phone Ryan Menendez CP Unavailable Allergies, Adverse Reactions, Alerts Substance Reaction Event Type N.K.D.A. Info Not Available Non Drug Allergy Problems Problem Type Condition Code Onset Dates Condition Status Problem Lupus M32.9 Active Problem Other termite inspector (current) drug therapy Z79.899 Active Problem Inflammatory arthritis M19.90 Active Assessment Other termite inspector (current) drug therapy Z79.899 Active Problem Headache R51 Active Assessment Lupus M32.9 Active Medications Medication Code System Code Instructions Start Date End Date Status Dosage Diltiazem HCl [facility] [address]-31 180 MG Orally Once a day Active 1 tablet PredniSONE [facility] 87580532444 2.5mg every other day Active 1 tablet Mycophenolate Mofetil [facility] 91652164859 500 Active TAKE 1 TABLET BY MOUTH TWICE DAILY Aspir-81 [facility] [address]-01 81 MG Orally Once a day Active 1 tablet Biotin [facility] 26794-97034 5000 MCG Orally twice a day Active 1 capsule Ramipril [facility] [address]-20 10 MG Orally Once a day Active 2 capsules Calcium + D [facility] [address]-99 600-200 MG-UNIT Orally Once a day Active 1 tablet with food Hydroxychloroquine Sulfate [facility] [address]-12 200 MG Orally Twice a day Active 1 tablet [place] 3 [facility] [address]33 1000 MG Orally Once a day Active 1 capsule Vital Signs Date/Time: October 15, 2016 BMI 23.91 Index Weight 135 lbs Height 63 in Temperature 96.9 F Cardiac Monitoring Heart Rate 64 /min Blood Pressure Diastolic 78 mm Hg Blood Pressure Systolic 110 mm Hg Results No Known Results Summary Purpose eClinicalWorks Submission
--- OUTSIDE RECORDS SUMMARY | 2018-09-22 05:37 | XMS REPORT ---
Author Author LenovandanaIzzy Organization eClinicalWorks Address Unknown Phone Unavailable Care Team Providers Care Sample Coordinator Name Role Phone Izzy Leach CP Unavailable Allergies, Adverse Reactions, Alerts Substance Reaction Event Type N.K.D.A. Info Not Available Non Drug Allergy Problems Problem Type Condition Code Onset Dates Condition Status Problem Other assisted (current) drug therapy Z79.899 Active Problem Headache R51 Active Problem Inflammatory arthritis M19.90 Active Assessment Other petroleum terminal plant operator (current) drug therapy Z79.899 Active Assessment Inflammatory arthritis M19.90 Active Problem Lupus M32.9 Active Assessment Lupus M32.9 Active Medications Medication Code System Code Instructions Start Date End Date Status Dosage Diltiazem HCl [facility] 89442387154 180 MG Orally Once a day Active 1 tablet Aspir-81 [facility] 06166751141 81 MG Orally Once a day Active 1 tablet Calcium + D [facility] 45412393921 600-200 MG-UNIT Orally Once a day Active 1 tablet with food PredniSONE ND 15320260372 2.5mg every other day Active 1 tablet Terbinafine HCl ND 54709253688 250 MG Orally Once a day Active 1 tablet Ramipril ND 95619624686 10 MG Orally Once a day Active 2 capsules Biotin [facility] 31516007546 5000 MCG Orally twice a day Active 1 capsule Plaquenil [facility] 01095215048 200 MG Active TAKE 1 TABLET BY MOUTH TWICE A DAY Mycophenolate Mofetil ND 81570381142 500 Active TAKE 1 TABLET BY MOUTH TWICE DAILY Kerydin [facility] 48409555246 5 % Externally Once a day Active 1 application to affected area [place] 3 ND 38585333520 1000 MG Orally Once a day Active 1 capsule Vital Signs Date/Time: Aug 04, 2017 BMI 24.87 Index Weight 136 lbs Height 62 in Temperature 97.6 F Cardiac Monitoring Heart Rate 70 /min Blood Pressure Diastolic 80 mm Hg Blood Pressure Systolic 110 mm Hg Results No Known Results Summary Purpose eClinicalWorks Submission
--- OUTSIDE RECORDS SUMMARY | 2018-09-22 05:37 | XMS REPORT ---
Author Author Kleber Brown eClinicalWorks Address Unknown Phone Unavailable Care Team Providers Care Tripper Name Role Phone Kleber Brown CP Unavailable Encounters Encounter Location Date RX Duplicate [...] Brown MD Sep 12, 2014 3 M FU Kleber Brown MD Mar 10, 2015 add on Kleber Brown MD May 24, 2015 Unknown Kleber Brown MD Mar 17, 2015 Research Kleber Brown MD Mar 20, 2015 Problems Problem Type Condition ICD-9 Code Onset Dates Condition Status Assessment Lupus 710.0 Active Problem Lupus 710.0 Active Social History Social History Element Qualifiers Date Reported Tobacco Use: . Are you a:: never smoker Mar 10, 2015 Marital Status: . Mar 10, 2015 Caffeine: no. Mar 10, 2015 Exercise: yes. cardio and light weights Mar 10, 2015 Alcohol: no. 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
--- OUTSIDE RECORDS SUMMARY | 2018-09-22 05:37 | XMS REPORT ---
Author Author Kleber Brown eClinicalWorks Address Unknown Phone Unavailable Care Team Providers Care Recycling Program Manager Name Role Phone Kleber Brown CP Unavailable [...] FU Kleber Brown MD Mar 10, 2015 Unknown Kleber Brown MD Mar 17, [...] Alcohol: no. 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
--- OUTSIDE RECORDS SUMMARY | 2018-09-22 05:37 | XMS REPORT | Continuity of Care Document ---
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 06/30/2018 Eron Vermaer Headache Active Problem 06/30/2018 Eron Stephanie Inflammatory arthritis Active Problem 06/30/2018 Eron Vermaer Lupus Active Problem 06/30/2018 Eron Brown Need for prophylactic vaccination and inoculation against influenza Active Diagnosis 05/09/2017 Eron Stephanie Lupus Active Problem 05/01/2016 Eron Brown Unspecified vitamin D deficiency Active Diagnosis 11/07/2013 Eron Brown Vitamin D deficiency Active Diagnosis 12/09/2015 Eron Brown Encounter for immunization Active Diagnosis 05/01/2016 Eron Brown Medications Medication Details Route Status Patient Instructions Ordering Provider Order Date Source PredniSONE 1 tablet Orally Active 2.5 MG Orally Once a day Gemma 07/22/2018 Eron Brown Hydroxychloroquine Sulfate 1 tablet Orally Active 200 MG Orally Twice a day Gemma 12/28/2015 Eron Brown PrednisoLONE 1 tablet Orally Active 5 MG Orally Once a day Lubec 05/02/2014 Eron Brown Prednison 1 tablet NA No Longer Active 10 MG Once a day Cage 12/15/2013 Eron Brown Prednisone 4 tablets as directed Orally Active 1mg Orally Once a day Cage 12/15/2013 Eron Brown PredniSONE 1 tablet Orally Active 5 MG Orally Once a day Cage 12/15/2013 Eron Brown Levaquin 1 tablet Orally Active 500 MG Orally Once a day Cage 11/01/2013 Eron Brown Plaquenil 2 tablets with food or milk Orally Active 200 MG Orally Once a day Cage 10/05/2013 Eron Brown Diltiazem HCl 1 tablet Orally Active 180 MG Orally Once a day Gemma Eron Brown Aspir-81 1 tablet Orally Active 81 MG Orally Once a day Gemma Eron Brown Calcium + D 1 tablet with food Orally Active 600-200 MG-UNIT Orally Once a day Gemma Eron Brown PredniSONE 1 tablet NA Active 2.5mg every other day Eron Vermaer Terbinafine HCl 1 tablet Orally Active 250 MG Orally Once a day Fakanupama Eron Brown Ramipril 2 capsules Orally Active 10 MG Orally Once a day Eron Brown Biotin 1 capsule Orally Active 5000 MCG Orally twice a day Eron Brown Plaquenil TAKE 1 TABLET BY MOUTH TWICE A DAY NA Active 200 MG [facility] Eron Brown Mycophenolate Mofetil TAKE 1 TABLET BY MOUTH TWICE DAILY NA Active 500 Eron Stephanie Kerydin 1 application to affected area Externally Active 5 % Externally Once a day [facility] Eron Brown [place] 3 1 capsule Orally Active 1000 MG Orally Once a day Eron Vermaer Plaquenil TAKE 1 TABLET BY MOUTH TWICE A DAY NA Active 200 MG Eron Brown PredniSONE 1 tablet Orally Active 5 MG Orally every other day Eron Brown Hydroxychloroquine Sulfate 1 tablet Orally Active 200 MG Orally Twice a day Eron Brown Calcium + D 1 tablet with food Orally Active 600-200 MG-UNIT Orally Once a day Eron Brown Diltiazem HCl 1 tablet Orally Active 180 MG Orally Once a day Eron Stephanie Ramipril 2 capsules Orally Active 10 MG Orally Once a day Eron Brown Biotin 1 capsule Orally Active 5000 MCG Orally twice a day Eron Vermaer [place] 3 1 capsule Orally Active 1000 MG Orally Once a day Eron Brown Aspir-81 1 tablet Orally Active 81 MG Orally Once a day Eron Brown Kerydin 1 application to affected area Externally Active 5 % Externally Once a day Eron Brown Terbinafine HCl 1 tablet Orally Active 250 MG Orally Once a day Eron Brown Mycophenolate Mofetil 1 tablets Orally Active 250mg Orally once a day Eron Brown Prednison 1 tablet NA Active 10 MG Once a day Fauzia Eron Brown Heliocare 1 capsule Orally Active 240 MG Orally Once a day Cagereilly Brown Hydroxychloroquine Sulfate TAKE 2 TABLET BY MOUTH EVERY DAY WITH FOOD OR MILK NA Active 200 Gemma Eron Brown Calcium 1 tablet with meals Orally Active 600 MG Orally daily Brown Eron Brown Cipro 1 tablet Orally Active 500 MG Orally Twice a day Stephanie Brown vitamin D 1 capsule po Active 5000 po once a day Brown Eron Brown PredniSONE 1 tablet Orally Active 5 MG Orally qd Gemma Eron Brown Plaquenil 1 tablet with food or milk Orally Active 200 MG Orally Once a day Gemma Eron Brown Super Greens as directed Orally Active Orally Gemma Eron Brown Acidophilus as directed Orally Active Orally Gemma Eron Brown PredniSONE 1 tablet Orally Active 2.5 MG Orally every other day Gemma Eron Brown Allergies, Adverse Reactions, Alerts Substance Category Reaction Severity Reaction type Status Date Reported Comments Source N.K.D.A. Adverse Reaction Info Not Available Adverse Reaction Active 06/23/2018 Eron Brown Immunizations Immunization Date Given Site Status Last Updated Comments Source Flu Vaccine 05/02/2017 completed Eron Brown Flu Vaccine 04/09/2016 completed Eron Brown Flu Vaccine 06/07/2015 completed Eron Brown Flu Vaccine 05/16/2014 completed Eron Brown Results Order Name Results Value Reference Range Date Interpretation Comments Source Vital Signs Vital Sign Value Date Comments Source Heart Rate 64 06/23/2018 Eron Brown Diastolic (mm Hg) 70 06/23/2018 Eron Brown Systolic (mm Hg) 108 06/23/2018 Eron Brown Temperature Oral (F) 98.5 F 06/23/2018 Eron Brown Weight 140 03/24/2018 Eron Brown Height 62 03/24/2018 Eron Brown Temperature Oral (F) 98.5 F 03/24/2018 Eron Brown Heart Rate 80 03/24/2018 Eron Brown Diastolic (mm Hg) 70 03/24/2018 Eron Brown Systolic (mm Hg) 108 03/24/2018 Eron Brown Weight 138 11/20/2017 Eron Brown Height 62 11/20/2017 Eron Brown Temperature Oral (F) 97.4 F 11/20/2017 Eron Brown Heart Rate 74 11/20/2017 Eron Brown Diastolic (mm Hg) 74 11/20/2017 Eron Brown Systolic (mm Hg) 118 11/20/2017 Eron Brown Weight 136 08/04/2017 Eron Brown Height 62 08/04/2017 Eron Brown Temperature Oral (F) 97.6 F 08/04/2017 Eron Brown Heart Rate 70 08/04/2017 Eron Brown Diastolic (mm Hg) 80 08/04/2017 Eron Brown Systolic (mm Hg) 110 08/04/2017 Eron Brown Weight 136 05/02/2017 Eron Brown Height 62 05/02/2017 Eron Brown Temperature Oral (F) 98.1 F 05/02/2017 Eron Brown Heart Rate 80 05/02/2017 Eron Brown Diastolic (mm Hg) 62 05/02/2017 Eron Brown Systolic (mm Hg) 104 05/02/2017 Eron Brown Weight 131.8 01/30/2017 Eron Brown Height 62 01/30/2017 Eron Brown Temperature Oral (F) 96.3 F 01/30/2017 Eron Brown Heart Rate 68 01/30/2017 Eron Brown Diastolic (mm Hg) 70 01/30/2017 Eron Brown Systolic (mm Hg) 110 01/30/2017 Eron Brown Weight 135 10/15/2016 Eron Brown Height 63 10/15/2016 Eron Brown Temperature Oral (F) 96.9 F 10/15/2016 Eron Brown Heart Rate 64 10/15/2016 Eron Brown Diastolic (mm Hg) 78 10/15/2016 Eron Brown Systolic (mm Hg) 110 10/15/2016 Eron Brown Weight 130 07/17/2016 Eron Brown Height 62.5 07/17/2016 Eron Brown Temperature Oral (F) 98.5 F 07/17/2016 Eron Brown Heart Rate 72 07/17/2016 Eron Brown Diastolic (mm Hg) 72 07/17/2016 Eron Brown Systolic (mm Hg) 110 07/17/2016 Eron Brown Weight 130 04/09/2016 Eron Brown Height 62 04/09/2016 Eron Brown Temperature Oral (F) 97.4 F 04/09/2016 Eron Brown Heart Rate 76 04/09/2016 Eron Brown Diastolic (mm Hg) 82 04/09/2016 Eron Brown Systolic (mm Hg) 122 04/09/2016 Eron Brown Weight 131 12/06/2015 Eron Brown Height 62 12/06/2015 Eron Brown Temperature Oral (F) 98.5 F 12/06/2015 Eron Brown Heart Rate 72 12/06/2015 Eron Brown Diastolic (mm Hg) 86 12/06/2015 Eron Brown Systolic (mm Hg) 124 12/06/2015 Eron Brown Weight 132 09/07/2015 Eron Brown Height 62 09/07/2015 Eron Brown Temperature Oral (F) 98.2 F 09/07/2015 Eron Brown Heart Rate 69 09/07/2015 Eron Brown Diastolic (mm Hg) 80 09/07/2015 Eron Brown Systolic (mm Hg) 120 09/07/2015 Eron Brown Weight 143 06/07/2015 Eron Brown Height 62 06/07/2015 Eron Brown Temperature Oral (F) 98.1 F 06/07/2015 Eron Brown Heart Rate 64 06/07/2015 Eron Brown Diastolic (mm Hg) 82 06/07/2015 Eron Brown Systolic (mm Hg) 122 06/07/2015 Eron Brown Weight 132 05/16/2014 Eron Brown Height 61 05/16/2014 Eron Brown Temperature Oral (F) 98.5 F 05/16/2014 Eron Brown Heart Rate 76 05/16/2014 Eron Brown Diastolic (mm Hg) 90 05/16/2014 Eron Brown Systolic (mm Hg) 160 05/16/2014 Eron Brown Weight 134 12/15/2013 Eron Brown Height 61 12/15/2013 Eron Brown Temperature Oral (F) 96.9 F 12/15/2013 Eron Brown Heart Rate 80 12/15/2013 Eron Brown Diastolic (mm Hg) 80 12/15/2013 Eron Brown Systolic (mm Hg) 120 12/15/2013 Eron Brown Weight 132 11/01/2013 Eron Brown Height 62 11/01/2013 Eron Brown Temperature Oral (F) 97.3 F 11/01/2013 Eron Brown Heart Rate 68 11/01/2013 Eron Brown Diastolic (mm Hg) 80 11/01/2013 Eron Brown Systolic (mm Hg) 130 11/01/2013 Eron Brown Encounters Location Location Details Encounter Type Encounter Number Reason For Visit Attending Provider ADM Date DC Date Status Source Kleber Brown MD 4 wk f/u [id number] 11/01/2013 11/01/2013 Eron Brown MD 4 wk f/u [id number] 11/01/2013 11/01/2013 Eron Brown MD 4 wk f/u [id number] 11/01/2013 11/01/2013 Eron Brown MD 4 wk f/u [id number] 11/01/2013 11/01/2013 Eron Brown MD 4 wk f/u [id number] 11/01/2013 11/01/2013 Eron Brown MD 4 wk f/u [id number] 11/01/2013 11/01/2013 Eron Brown MD 4 wk f/u [id number] 11/01/2013 11/01/2013 Eron Brown MD 4 wk f/u [id number] 11/01/2013 11/01/2013 Eron Brown MD 4 wk f/u [id number] 11/01/2013 11/01/2013 Eron Brown MD 4 wk f/u [id number] 11/01/2013 11/01/2013 Eron Brown MD 4 wk f/u [id number] 11/01/2013 11/01/2013 Eron Brown MD 4 wk f/u [id number] 11/01/2013 11/01/2013 Eron Brown MD 4 wk f/u [id number] 11/01/2013 11/01/2013 Eron Brown MD 6 wk fu [id number] 12/15/2013 12/15/2013 Eron Brown MD 6 wk fu [id number] 12/15/2013 12/15/2013 Eron Brown MD 6 wk fu [id number] 12/15/2013 12/15/2013 Eron Brown MD 6 wk fu [id number] 12/15/2013 12/15/2013 Eron Brown MD 6 wk fu [id number] 12/15/2013 12/15/2013 Eron Brown MD 6 wk fu [id number] 12/15/2013 12/15/2013 Eron Brown MD 6 wk fu [id number] 12/15/2013 12/15/2013 Eron Brown MD 6 wk fu [id number] 12/15/2013 12/15/2013 Eron Brown MD 6 wk fu [id number] 12/15/2013 12/15/2013 Eron Brown MD 6 wk fu [id number] 12/15/2013 12/15/2013 Eron Brown MD 6 wk fu [id number] 12/15/2013 12/15/2013 Eron Brown MD 6 wk fu [id number] 12/15/2013 12/15/2013 Eron Brown MD REFILLS [id number] 05/02/2014 05/02/2014 Eron Brown MD REFILLS [id number] 05/02/2014 05/02/2014 Eron Brown MD REFILLS [id number] 05/02/2014 05/02/2014 Eron Brown MD REFILLS [id number] 05/02/2014 05/02/2014 Eron Brown MD REFILLS [id number] 05/02/2014 05/02/2014 Eron Brown MD REFILLS [id number] 05/02/2014 05/02/2014 Eron Brown MD REFILLS [id number] 05/02/2014 05/02/2014 Eron Brown MD REFILLS [id number] 05/02/2014 05/02/2014 Eron Brown MD REFILLS [id number] 05/02/2014 05/02/2014 Eron Brown MD REFILLS [id number] 05/02/2014 05/02/2014 Eron Brown MD REFILLS [id number] 05/02/2014 05/02/2014 Eron Brown MD RX Duplicate [id number] 05/04/2014 05/04/2014 Eron Brown MD RX Duplicate [id number] 05/04/2014 05/04/2014 Eron Brown MD RX Duplicate [id number] 05/04/2014 05/04/2014 Eron Brown MD RX Duplicate [id number] 05/04/2014 05/04/2014 Eron Brown MD RX Duplicate [id number] 05/04/2014 05/04/2014 Eron Brown MD RX Duplicate [id number] 05/04/2014 05/04/2014 Eron Brown MD RX Duplicate [id number] 05/04/2014 05/04/2014 Eron Brown MD RX Duplicate [id number] 05/04/2014 05/04/2014 Eron Brown MD RX Duplicate [id number] 05/04/2014 05/04/2014 Eron Brown MD RX Duplicate [id number] 05/04/2014 05/04/2014 Eron Brown MD [facility] f/u [id number] 05/16/2014 05/16/2014 Eron Brown MD [facility] f/u [id number] 05/16/2014 05/16/2014 Eron Brown MD [facility] f/u [id number] 05/16/2014 05/16/2014 Eron Brown MD [facility] f/u [id number] 05/16/2014 05/16/2014 Eron Brown MD [facility] f/u [id number] 05/16/2014 05/16/2014 Eron Brown MD [facility] f/u [id number] 05/16/2014 05/16/2014 Eron Brown MD [facility] f/u [id number] 05/16/2014 05/16/2014 Eron Brown MD [facility] f/u [id number] 05/16/2014 05/16/2014 Eron Brown MD 2mth f/u [id number] 05/16/2014 05/16/2014 Eron Brown MD REFILLS [id number] 08/22/2014 08/22/2014 Eron Brown MD REFILLS [id number] 08/22/2014 08/22/2014 Eron Brown MD REFILLS [id number] 08/22/2014 08/22/2014 Eron Brown MD REFILLS [id number] 08/22/2014 08/22/2014 Eron Brown MD REFILLS [id number] 08/22/2014 08/22/2014 Eron Brown MD REFILLS [id number] 08/22/2014 08/22/2014 Eron Brown MD REFILLS [id number] 08/22/2014 08/22/2014 Eron Brown MD REFILLS [id number] 08/22/2014 08/22/2014 Eron Brown MD prednisone question [id number] 08/25/2014 08/25/2014 Eron Brown MD prednisone question [id number] 08/25/2014 08/25/2014 Eron Brown MD prednisone question [id number] 08/25/2014 08/25/2014 Eron Brown MD prednisone question [id number] 08/25/2014 08/25/2014 Eron Brown MD prednisone question [id number] 08/25/2014 08/25/2014 Eron Brown MD prednisone question [id number] 08/25/2014 08/25/2014 Eron Brown MD prednisone question [id number] 08/25/2014 08/25/2014 Eron Brown MD prednisone question [id number] 08/25/2014 08/25/2014 Eron Brown MD 3 M FU [id number] 09/12/2014 09/12/2014 Eron Brown MD 3 M FU [id number] 09/12/2014 09/12/2014 Eron Brown MD 3 M FU [id number] 09/12/2014 09/12/2014 Eron Brown MD 3 M FU [id number] 09/12/2014 09/12/2014 Eron Brown MD 3 M FU [id number] 09/12/2014 09/12/2014 Eron Brown MD 3 M FU [id number] 09/12/2014 09/12/2014 Eron Brown MD 3 M FU [id number] 09/12/2014 09/12/2014 Eron Brown MD 3 M FU [id number] 09/12/2014 09/12/2014 Eron Brown MD Costochondritis [id number] 09/27/2014 09/27/2014 Eron Brown MD Costochondritis [id number] 09/27/2014 09/27/2014 Eron Brown MD Costochondritis [id number] 09/27/2014 09/27/2014 Eron Brown MD Costochondritis [id number] 09/27/2014 09/27/2014 Eron Brown MD Costochondritis [id number] 09/27/2014 09/27/2014 Eron Brown MD Costochondritis [id number] 09/27/2014 09/27/2014 Eron Brown MD Costochondritis [id number] 09/27/2014 09/27/2014 [facility] [id number] 09/27/2014 09/27/2014 Eron Brown MD [facility] [id number] 12/08/2014 12/08/2014 Eron Brown MD [facility] [id number] 12/08/2014 12/08/2014 Eron Brown MD [facility] [id number] 12/08/2014 12/08/2014 Eron Brown MD [facility] [id number] 12/08/2014 12/08/2014 Eron Brown MD [facility] [id number] 12/08/2014 12/08/2014 Eron Brown MD [facility] [id number] 12/08/2014 12/08/2014 Eron Brown MD [facility] [id number] 12/08/2014 12/08/2014 Eron Brown MD [facility] [id number] 12/08/2014 12/08/2014 Eron Brown MD [facility] [id number] 03/10/2015 03/10/2015 Eron Brown MD 3 M FU [id number] 03/10/2015 03/10/2015 Eron Brown MD 3 M FU [id number] 03/10/2015 03/10/2015 Eron Brown MD 3 M FU [id number] 03/10/2015 03/10/2015 Eron Brown MD 3 M FU [id number] 03/10/2015 03/10/2015 Eron Brown MD 3 M [id number] 03/10/2015 03/10/2015 Eron Brown MD 3 M FU [id number] 03/10/2015 03/10/2015 Eron Brown MD 3 M FU [id number] 03/10/2015 03/10/2015 Eron Brown MD Unknown [id number] 03/17/2015 03/17/2015 Eron Brown MD Unknown [id number] 03/17/2015 03/17/2015 Eron Brown MD Unknown [id number] 03/17/2015 03/17/2015 Eron Brown MD Unknown [id number] 03/17/2015 03/17/2015 Eron Brown MD Unknown [id number] 03/17/2015 03/17/2015 Eron Brown MD Unknown [id number] 03/17/2015 03/17/2015 Eron Brown MD Unknown [id number] 03/17/2015 03/17/2015 Eron Brown MD Unknown [id number] 03/17/2015 03/17/2015 Eron Brown MD Research [id number] 03/20/2015 03/20/2015 Eron Brown MD Research [id number] 03/20/2015 03/20/2015 Eron Brown MD Research [id number] 03/20/2015 03/20/2015 Eron Brown MD Research [id number] 03/20/2015 03/20/2015 Eron Brown MD Research [id number] 03/20/2015 03/20/2015 Eron Brown MD Research [id number] 03/20/2015 03/20/2015 Eron Brown MD Research [id number] 03/20/2015 03/20/2015 Eron Brown MD Research [id number] 03/20/2015 03/20/2015 Eron Brown MD add on [id number] 05/24/2015 05/24/2015 Eron Brown MD add on [id number] 05/24/2015 05/24/2015 Eron Brown MD add on [id number] 05/24/2015 05/24/2015 Eron Brown MD add on [id number] 05/24/2015 05/24/2015 Eron Brown MD add on [id number] 05/24/2015 05/24/2015 Eron Brown MD add on [id number] 05/24/2015 05/24/2015 Eron Brown MD add on [id number] 05/24/2015 05/24/2015 Eron Brown MD 3 M FU [id number] 06/07/2015 06/07/2015 Eron Brown MD 3 M FU [id number] 06/07/2015 06/07/2015 Eron Brown MD 3 M FU [id number] 06/07/2015 06/07/2015 Eron Brown MD 3 M [id number] 06/07/2015 06/07/2015 Eron Brown MD 3 M FU [id number] 06/07/2015 06/07/2015 Eron Brown MD 3 M [id number] 06/07/2015 06/07/2015 Eron Brown MD 3 M [id number] 09/07/2015 09/07/2015 Eron Brown MD 3 M [id number] 09/07/2015 09/07/2015 Eron Brown MD 3 M [id number] 09/07/2015 09/07/2015 Eron Brown MD 3 M [id number] 09/07/2015 09/07/2015 Eron Brown MD 3 M [id number] 09/07/2015 09/07/2015 Eron Brown MD 3 M FU [id number] 12/06/2015 12/06/2015 Eron Brown MD 3 M [id number] 12/06/2015 12/06/2015 Eron Brown MD 3 M [id number] 12/06/2015 12/06/2015 Eron Brown MD 3 M [id number] 12/06/2015 12/06/2015 Eron Brown MD plaquenil rx [id number] 12/28/2015 12/28/2015 Eron Brown MD plaquenil rx [id number] 12/28/2015 12/28/2015 Eron Brown MD plaquenil rx [id number] 12/28/2015 12/28/2015 Eron Brown MD 3 M [id number] 04/09/2016 04/09/2016 Eron Brown MD 3 M [id number] 04/09/2016 04/09/2016 Eron Brown MD 3 M [id number] 07/17/2016 07/17/2016 Eron Brown Procedures Procedure Code Date Perfomer Comments Source
--- OUTSIDE RECORDS SUMMARY | 2018-09-22 05:38 | XMS REPORT ---
Author Author Ryan Menendez [facility] eClinicalWorks Address Unknown Phone Unavailable Care Team Providers Care Shrimp Cleaner Name Role Phone GemmaRyan Unavailable Allergies, Adverse Reactions, Alerts Substance Reaction [...] M AMY Brown MD December 08, 2014 3 M AMY Brown MD Jul 17, 2016 Costochondritis Kleber Brown MD September 27, 2014 3 M AMY Brown MD Sep 12, 2014 3 M AMY Brown MD December 06, 2015 plaquenil rx Kleber Brown MD December 28, 2015 3 Murali Brown MD Jun 07, 2015 3 Murali Brown MD Sep 07, 2015 3 M AMY Brown MD Mar 10, 2015 add on Kleber Brown MD May 24, 2015 Unknown Kleber Brown MD Mar 17, 2015 Research Kleber Brown MD Mar 20, 2015 3 M AMY Brown MD Apr 09, 2016 Problems Problem Type Condition ICD-9 Code Onset Dates Condition Status Problem Lupus M32.9 Active Problem Other terminal operator (current) drug therapy Z79.899 Active Problem Inflammatory arthritis M19.90 Active Assessment Other terminal operator (current) drug therapy Z79.899 Active Problem Headache R51 Active Assessment Lupus M32.9 Active Medications Medication Code System Code Instructions Start Date End Date Status Dosage Diltiazem HCl [facility] [address]-61 180 MG Orally Once a day Active 1 tablet Super Greens [facility] 95771-[address]23 Orally Active as directed Mycophenolate Mofetil [facility] 59609665863 500 Active TAKE 1 TABLET BY MOUTH TWICE DAILY Acidophilus [facility] [address]-10 Orally Active as directed Biotin [facility] 19484-16756 5000 MCG Orally twice a day Active 1 capsule Aspir-81 [facility] [address]-10 81 MG Orally Once a day Active 1 tablet Lathrop 3 [facility] 12098-47523 1000 MG Orally Once a day Active 1 capsule PredniSONE [facility] 18264098536 5 MG every ohter day Active 1 tablet Hydroxychloroquine Sulfate [facility] [address]-27 200 MG Orally Twice a day Active 1 tablet Calcium + D [facility] [address]-86 600-200 MG-UNIT Orally Once a day Active 1 tablet with food Ramipril [facility] [address]-79 10 MG Orally Once a day Active 2 capsules Social History Social History Element Qualifiers Date Reported Tobacco Use: . Are you a:: never smoker Jul 17, 2016 Marital Status: . Jul 17, 2016 Caffeine: no. Jul 17, 2016 Exercise: yes. cardio and light weights Jul 17, 2016 Alcohol: no. 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 Jul 17, 2016 Vital Signs Date/Time: Jul 17, 2016 Weight 130 lbs Height 62.5 in Temperature 98.5 F Cardiac Monitoring Heart Rate 72 /min Blood Pressure Diastolic 72 mm Hg Blood Pressure Systolic 110 mm Hg Results SED RATE BY MODIFIED WESTERGREN SED RATE BY MODIFIED WESTERGREN(-< OR=20 mm/h) 11 DS DNA-Crithidia Ifa w/ Reflex DNA AB (DS) CRITHIDIA,IFA(-NEGATIVE ) POSITIVE C3, C4, COMPLEMENT COMPLEMENT COMPONENT C3C(- mg/dL) 114 COMPLEMENT COMPONENT C4C(-ADULTS: 16-47 mg/dL) 13 COMPLEMENT, TOTAL (CH50)(-31-60 U/mL) 58 C-REACTIVE PROTEIN C-REACTIVE PROTEIN(-<0.80 mg/dL) 0.22 DNA AB (DS) CRITHIDIA TITER DNA AB (DS) CRITHIDIA TITER(-<1:10 titer) 1:160 Summary Purpose eClinicalWorks Submission
--- OUTSIDE RECORDS SUMMARY | 2018-09-22 05:38 | XMS REPORT ---
Author Author Ryan Menendez [facility] eClinicalWorks Address Unknown Phone Unavailable Care Team Providers Care Fuel Cell Binder Name Role Phone GemmaRyan reese Unavailable Allergies, [...] ICD-9 Code Onset Dates Condition Status Assessment Inflammatory arthritis M19.90 Active Assessment Encounter for immunization Z23 Active Problem Lupus M32.9 Active Problem Other rat exterminator (current) drug therapy Z79.899 Active Problem Inflammatory arthritis M19.90 Active Assessment Lupus M32.9 Active Assessment Other rat exterminator (current) drug therapy Z79.899 Active Problem Headache R51 Active Problem Lupus 710.0 Active Medications Medication Code System Code Instructions Start Date End Date Status Dosage PredniSONE [facility] 83390967211 5 MG every other day Active 1 tablet Aspir-81 [facility] [address]-98 81 MG Orally Once a day Active 1 tablet Mycophenolate Mofetil [facility] [address]-53 250mg Orally once a day Active 1 tablets Calcium + D [facility] [address]-09 600-200 MG-UNIT Orally Once a day Active 1 tablet with food Hydroxychloroquine Sulfate [facility] [address]-62 200 MG Orally Twice a day December 28, 2015 Active 1 tablet Diltiazem HCl [facility] [address]-12 180 MG Orally Once a day Active 1 tablet PredniSONE [facility] [address]-55 2.5 MG Orally every other day Active 1 tablet Biotin [facility] 38100-[address]202 5000 MCG Orally twice a day Active 1 capsule Ramipril [facility] [address]-72 10 MG Orally Once a day Active 2 capsules Social History Social History Element Qualifiers Date Reported Tobacco Use: . Are you a:: never smoker Apr 09, 2016 Marital Status: . Apr 09, 2016 Caffeine: no. Apr 09, 2016 Exercise: yes. cardio and light weights Apr 09, 2016 Alcohol: no. 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 [place](-> OR=60 mL/min/1.73m2) 78 ALKALINE PHOSPHATASE(-33-115 U/L) 51 eGFR (-> OR=60 mL/min/1.73m2) 90 BILIRUBIN, TOTAL(-0.2-1.2 mg/dL) 0.4 BUN/CREATININE RATIO(-6-22 (calc)) NOT APPLICABLE ALBUMIN/GLOBULIN RATIO(-1.0-2.5 (calc)) 1.4 SODIUM(-135-146 mmol/L) 139 GLOBULIN(-1.9-3.7 g/dL (calc)) 2.8 POTASSIUM(-3.5-5.3 mmol/L) 4.3 GLUCOSE(-65-99 mg/dL) 80 CHLORIDE(-98-110 mmol/L) 105 ALBUMIN(-3.6-5.1 g/dL) 3.8 UREA NITROGEN (BUN)(-7-25 mg/dL) 14 PROTEIN, TOTAL(-6.1-8.1 g/dL) 6.6 SED RATE BY MODIFIED WESTERGREN SED RATE BY MODIFIED WESTERGREN(-< OR=20 mm/h) 4 C-REACTIVE PROTEIN C-REACTIVE PROTEIN(-<0.80 mg/dL) 0.11 CBC (INCLUDES DIFF/PLT) MCHC(-32.0-36.0 g/dL) 33.3 MCH(-27.0-33.0 pg) 32.4 PLATELET COUNT(-140-400 Thousand/uL) 273 RDW(-11.0-15.0 %) 13.0 BASOPHILS(- %) 0.2 ABSOLUTE NEUTROPHILS(-8689-9947 cells/uL) 2957 ABSOLUTE LYMPHOCYTES(-850-3900 cells/uL) 1764 MPV(-7.5-11.5 fL) 8.4 ABSOLUTE BASOPHILS(-0-200 cells/uL) 11 HEMATOCRIT(-35.0-45.0 %) 43.9 NEUTROPHILS(- %) 52.8 MCV(-80.0-100.0 fL) 97.3 RED BLOOD CELL COUNT(-3.80-5.10 Million/uL) 4.51 ABSOLUTE MONOCYTES(-200-950 cells/uL) 728 ABSOLUTE EOSINOPHILS(-15-500 cells/uL) 140 HEMOGLOBIN(-11.7-15.5 g/dL) 14.6 EOSINOPHILS(- %) 2.5 WHITE BLOOD CELL COUNT(-3.8-10.8 Thousand/uL) 5.6 LYMPHOCYTES(- %) 31.5 MONOCYTES(- %) 13.0 C3, C4, COMPLEMENT COMPLEMENT, TOTAL (CH50)(-31-60 U/mL) 52 COMPLEMENT COMPONENT C4C(-ADULTS: 16-47 mg/dL) 11 COMPLEMENT COMPONENT C3C(- mg/dL) 88 DS DNA-Crithidia Ifa w/ Reflex DNA AB (DS) CRITHIDIA,IFA(-NEGATIVE ) NEGATIVE Immunizations Vaccine Administration Date Flu Vaccine Apr 09, 2016 Summary Purpose eClinicalWorks Submission
[2018-09-22 10:14] VITALS: BP 129/83
--- NOTE | 2018-09-22 17:02 | Operative Report ---
DATE OF PROCEDURE: 09/22/2018 SURGEON: Tara Casanova DPM CARROT BUNCHER: None. PREOPERATIVE DIAGNOSES: 1. Tailor's bunion, left foot. 2. Hammertoe, fourth, left. 3. Hammertoe, five, left. POSTOPERATIVE DIAGNOSES: 1. Tailor's bunion, left foot. 2. Hammertoe, fourth, left. 3. Hammertoe, five, left. PROCEDURE: 1. Fifth metatarsal osteotomy with internal fixation, left. 2. PIPJ arthrodesis, fourth. 3. Rotational arthroplasty, fifth, left. 4. Human Allograft in order to prevent adhesions, to promote healing. COMPLICATIONS: None. CONDITION: Stable. HEMOSTASIS: Pneumatic ankle tourniquet. ESTIMATED BLOOD LOSS: Less than 10 mL. MATERIALS: 1. EasyClip Xpress 10 x 10 mm staple, lot number [id number]. 2. Intramedullary arthrodesis implants Human Allograft lot #[id number]. 3. Allograft 2 x 2, lot number is [id number], expiration November 14, 2019. PROCEDURE IN DETAIL: Under mild sedation, the patient was brought to the operating room and placed on the operating table in a supine position. Following IV sedation, anesthesia was obtained with general anesthetic. At this point, the left foot scrubbed, prepped and draped in usual aseptic manner. It was then lowered to the table after the pneumatic ankle tourniquet was inflated to 250 mmHg. Fifth metatarsal osteotomy. Attention was then directed to the lateral aspect of the fifth, where a linear incision was made overlying the fifth MPJ down into the metatarsal. The incision was deepened via sharp and blunt dissection to the level of the capsule. Linear capsulotomy was then performed. At this point, the large exostosis at the lateral aspect of fifth metatarsal was then removed utilizing an oscillating saw. Fifth metatarsal osteotomy was performed [id number] in reverse chevron type of procedure. About 60 degrees, the head of the first metatarsal was then moved into the medial lateral position helping to close the intermetatarsal angle. A staple was used 10 mm in order to fixate the osteotomy. There was noted to be adequate compression clinically and with the use of intraoperative fluoroscopy. Attention was then directed to the fourth, where a linear incision was made at the proximal interphalangeal joint. The incision was deepened via sharp and blunt dissection down to the level of the tendon. The tendon was then tenotomized. The joint was then visualized. It was then prepared for arthrodesis. A was then used to fixate the arthrodesis. There was noted to be adequate compression clinically and with the use of intraoperative fluoroscopy. Standard derotational arthroplasty incision was then made at the fifth PIP joint. The incision was deepened down to the level of the extensor tendon. The extensor tendon was then tenotomized. Arthroplasty was then performed and noted to decrease the contracture at that joint. The joint was using the skin plasty. An allograft 2 x 2 was then inserted into the area after closure of the capsule. Before closure, copious amount of irrigation, then closure was performed with the 3-0 Vicryl, 4-0 Vicryl, and 4-0 nylon. The allograft was then used at the level of subcu and noted to prevent adhesions and to promote healing of the area. At this point, there was still noted contracture at the DIP joint at the fourth. Utilizing sharp dissection, the plantar flexor tendon was then tenotomized, the contracture was then released and the area was then closed with 4-0 nylon. All the areas were then closed closing the deepest layer with 3-0 Vicryl, 4-0 Vicryl and 4-0 nylon. Clean dressing was applied consisting of Adaptic, Coban, 4x4s, Kerlix and an Otis bandage. The tourniquet was deflated. There was noted to be a hyperemic response to all the digits. The patient tolerated the procedure and anesthesia well without complications and was transferred to recovery room with vital signs stable and vascular status intact to both feet. The patient will be weightbearing with the use of postop shoe and crutches. The patient will call the office if any questions, concerns, or any problems arise. CHAU Stafford/RANCHO /[id number] CRISSY
== END | disposition home or self-care (01) ==
LOC: OR 05:34
PROVIDERS: ATTEND Podiatrist Foot & Ankle Surgery
DX: M21.622 Bunionette of left foot (principal); M20.42 Other hammer toe(s) (acquired), left foot; M32.9 Systemic lupus erythematosus, unspecified; I10 Essential (primary) hypertension; R00.1 Bradycardia, unspecified; Z01.810 Encounter for preprocedural cardiovascular examination; Z79.82 Long term (current) use of aspirin; Z79.52 Long term (current) use of systemic steroids
CPT/HCPCS: 28110; 28285 ×2; 81025; 93005; J0690; J1100; J1885; J2001; J2250; J2405; J2704; J2710; 76000

== ENCOUNTER 2021-03-15 11:33 | Inpatient (IN) | payer MEDICARE ==
[~2021-03-15] VITALS: Ht 154.9 cm; Wt 70.3 kg
[~2021-03-15 11:33] MED LIST changes: -BUPIVACAINE HCL 0.5% INJ 30 ML VIAL INJ ONE; -CEFAZOLIN SOD 1 GM/NS 50ML 100 ML IV ONE; -DEXAMETHASONE SOD PHOS INJ 4 MG/ML VIAL ONE; -FENTANYL CITRATE/PF 100MCG/2 ML INJ ONE; -KETOROLAC TROMETHAMINE 30 MG/ML VIAL ONE; -LIDOCAINE HCL 2% LOCAL INJ 5 ML SDV VIAL INJ ONE; -MIDAZOLAM HCL 2 MG/2 ML VIAL ONE; -NEOSTIGMINE 1 MG/ML 10ML VIAL ONE; -ONDANSETRON HCL INJ 2MG/ML 2ML 2 MG/ML VIAL ONE; -PROPOFOL IV EMULSION 10 MG/ML 20 ML VIAL ONE; -SEVOFLURANE INHAL SOLN 250 ML PEN BTL ONE
[2021-03-15] MEDS ORDERED: SODIUM CHLORIDE 0.9% 50ML 100 ML ONE (11:56)
[2021-03-15] MEDS ORDERED: BUPIVACAINE 0.25%/EPI 30ML SDV INJ ONE (12:34)
[2021-03-15] MEDS ORDERED: LIDOCAINE 1% W/EPINEPHRINE 20 ML VIAL ONE (12:34)
[2021-03-15] MEDS ORDERED: ESTROGENS CONJUGATED VAGINAL CR 45 GM TUBE PV ONE (12:34)
[2021-03-15] MEDS ORDERED: SODIUM CHLORIDE 0.9% 100 ML ONE (14:51)
[2021-03-15] MEDS ORDERED: HYDROMORPHONE 1MG/1ML INJ ONE (15:15)
[2021-03-15] MEDS ORDERED: METOCLOPRAMIDE HCL 10 MG/2ML VIAL ONE (15:31)
[2021-03-15] MEDS ORDERED: ONDANSETRON HCL INJ 2MG/ML 2ML 2 MG/ML VIAL ONE (15:31)
[2021-03-15] MEDS ORDERED: PROMETHAZINE HCL (IM) 25 MG/ML VIAL IM ONE (16:18)
[2021-03-15 16:44] VITALS: BP 109/65
[2021-03-15 16:47] VITALS: BP 109/65
[2021-03-15] MEDS: KETOROLAC TROMETHAMINE 30 MG/ML VIAL IV SCH (17:24)
[2021-03-15] MEDS: SODIUM CHLORIDE 0.45% 1,000 ML IV SCH (17:24)
[2021-03-15 20:00] VITALS: BP 106/61
[2021-03-15] MEDS: Cefazolin 1 GM in SODIUM CHLORIDE 0.9% 50ML 50 ML IV SCH (20:56)
[2021-03-15 20:59] VITALS: BP 106/61
[2021-03-15] MEDS ORDERED: ZOLPIDEM TARTRATE 5 MG TAB PO PRN (21:00)
[2021-03-16] VITALS: BP 116/74
[2021-03-16] MEDS: KETOROLAC TROMETHAMINE 30 MG/ML VIAL IV SCH ×3 (00:41→12:00)
[2021-03-16] MEDS: SODIUM CHLORIDE 0.45% 1,000 ML IV SCH ×2 (00:58→09:46)
[2021-03-16 04:00] VITALS: BP 112/78
[2021-03-16] MEDS: Cefazolin 1 GM in SODIUM CHLORIDE 0.9% 50ML 50 ML IV SCH ×2 (06:00→12:00)
[2021-03-16 07:07] LABS: BASOPHILS % 0.2 % (0.0-1.0); HEMATOCRIT 35.4 % (34.2-44.1); HEMOGLOBIN 12.2 g/dL (12.0-16.0); LYMPHOCYTES # (AUTO) 1.4 (1.0-3.2); LYMPHOCYTES % 6.8 % (18.0-39.1); MEAN CORPUSCULAR HGB CONC 34.5 g/dL (31-35); MEAN CORPUSCULAR VOLUME 92.9 fL (81-99); MONOCYTES # (AUTO) 0.9 (0.2-0.8); MONOCYTES % 4.8 % (4.4-11.3); NEUTROPHILS # (AUTO) 17.3 (2.1-6.9); NEUTROPHILS % 87.6 % (38.7-80.0); PLATELET COUNT 247 x10e3/uL (140-360); RED BLOOD COUNT 3.81 x10e6/uL (3.6-5.1); RED CELL DISTRIBUTION WIDTH 12.2 % (11.7-14.4)
[2021-03-16 08:30] VITALS: BP 122/76
[2021-03-16 12:40] VITALS: BP 121/76
[2021-03-16] MEDS ORDERED: NEURONTIN100 MG PO (13:51)
[2021-03-16] MEDS ORDERED: MOTRIN200 MG PO (13:52)
== END 2021-03-16 15:30 | disposition home or self-care (01) | DRG 983 ==
LOC: OR 11:33 → PACU V 15:03 → MED/SURG 16:29
PROVIDERS: ADMIT Obstetrics & Gynecology; ATTEND Obstetrics & Gynecology
PROC: 0UB77ZZ Excision of Bilateral Fallopian Tubes, Via Natural or Artificial Opening (ICD-10-PCS; 2021-03-15)
PROC: 0UT97ZZ Resection of Uterus, Via Natural or Artificial Opening (ICD-10-PCS; principal; 2021-03-15 13:38)
DX: R10.2 Pelvic and perineal pain (principal); M32.9 Systemic lupus erythematosus, unspecified; Z20.822 Contact with and (suspected) exposure to COVID-19
CPT/HCPCS: 36415; 84702; 85025; 86850; 86900; 88307; 93005; J0690; J1170; J1885; J2405; J2550; J2765; J7050; U0002